=== PATIENT | male | born 1960 | race Hispanic/Latino ===

== ENCOUNTER 2025-01-23 12:06 | Observation (INO) | payer MEDICARE, OTHER ==
[~2025-01-23] VITALS: Ht 175.3 cm; Wt 76.2 kg
[2025-01-23 12:24] VITALS: TEMP 98
[2025-01-23 12:57] LABS: BASOPHILS % 0.2 % (0.0-1.0); EOSINOPHILS # (AUTO) 0.1 (0.0-0.4); EOSINOPHILS % 0.5 % (0.0-6.0); HEMATOCRIT 36.2 % (38.2-49.6); HEMOGLOBIN 12.2 g/dL (14.0-18.0); LYMPHOCYTES # (AUTO) 1.3 (1.0-3.2); MEAN CORPUSCULAR HEMOGLOBIN 31.2 pg (28-32); MEAN CORPUSCULAR HGB CONC 33.7 g/dL (31-35); MEAN CORPUSCULAR VOLUME 92.6 fL (81-99); MONOCYTES # (AUTO) 0.7 (0.2-0.8); MONOCYTES % 7.4 % (4.4-11.3); NEUTROPHILS # (AUTO) 7.2 (2.1-6.9); NEUTROPHILS % 77.6 % (38.7-80.0); PLATELET COUNT 189 x10e3/uL (140-360); RED BLOOD COUNT 3.91 x10e6/uL (4.3-5.7); RED CELL DISTRIBUTION WIDTH 12.6 % (11.7-14.4); WHITE BLOOD COUNT 9.28 x10e3/uL (4.8-10.8)
[2025-01-23 13:34] LABS: ALBUMIN 3.8 g/dL (3.5-5.0); ALBUMIN/GLOBULIN RATIO 1.2 (0.8-2.0); ANION GAP 15.9 mmol/L (8-16); BILIRUBIN,TOTAL 0.5 mg/dL (0.2-1.2); CALCIUM 9.2 mg/dL (8.4-10.2); CREATININE, SERUM 0.97 mg/dL (0.72-1.25); POTASSIUM 3.9 mmol/L (3.5-5.1); TOTAL PROTEIN 6.9 g/dL (6.5-8.1)
[2025-01-23 13:39] LABS: TROPONIN I 0.012 ng/mL (0-0.300)
[2025-01-23 13:52] LABS: INR 0.95; PROTHROMBIN TIME 13.5 seconds (11.9-14.5)
[2025-01-23 13:53] LABS: PARTIAL THROMBOPLASTIN TIME 29.2 seconds (23.8-35.5)
[2025-01-23] MEDS: SODIUM CHLORIDE 0.9% 1000ML 1,000 ML IV STA (13:55)
[2025-01-23 15:02] VITALS: PULSE 78; RESP 24
[2025-01-23] MEDS ORDERED: ONDANSETRON HCL INJ 2MG/ML 2ML 2 MG/ML VIAL IV PRN (15:45)
[2025-01-23 19:18] LABS: TROPONIN I 0.007 ng/mL (0-0.300)
[2025-01-23 20:00] VITALS: BP 141/86; PULSE 81; RESP 20; TEMP 98; O2SAT 100
[2025-01-23 21:00] VITALS: BP 141/86; PULSE 81; RESP 20; TEMP 98; O2SAT 100
[2025-01-23] MEDS: ACETAMINOPHEN 325 MG TAB PO PRN (22:39)
[2025-01-24] VITALS (9 sets, daily range): BP systolic 106–130; BP diastolic 73–85; PULSE 67–77; RESP 17–20; TEMP 97.9–98.7; O2SAT 98–100
[2025-01-24 00:28] LABS: TROPONIN I 0.002 ng/mL (0-0.300)
[2025-01-24 06:27] LABS: BASOPHILS % 0.3 % (0.0-1.0); EOSINOPHILS # (AUTO) 0.1 (0.0-0.4); EOSINOPHILS % 0.6 % (0.0-6.0); HEMATOCRIT 36.6 % (38.2-49.6); HEMOGLOBIN 12.3 g/dL (14.0-18.0); LYMPHOCYTES # (AUTO) 1.5 (1.0-3.2); MEAN CORPUSCULAR HEMOGLOBIN 31.9 pg (28-32); MEAN CORPUSCULAR HGB CONC 33.6 g/dL (31-35); MEAN CORPUSCULAR VOLUME 94.8 fL (81-99); MONOCYTES # (AUTO) 0.7 (0.2-0.8); MONOCYTES % 8.5 % (4.4-11.3); NEUTROPHILS # (AUTO) 5.6 (2.1-6.9); NEUTROPHILS % 71.3 % (38.7-80.0); PLATELET COUNT 178 x10e3/uL (140-360); RED BLOOD COUNT 3.86 x10e6/uL (4.3-5.7); RED CELL DISTRIBUTION WIDTH 12.6 % (11.7-14.4); WHITE BLOOD COUNT 7.88 x10e3/uL (4.8-10.8)
[2025-01-24 06:51] LABS: ANION GAP 13.8 mmol/L (8-16); CALCIUM 8.5 mg/dL (8.4-10.2); CHOL/HDL RATIO 2.4 (3.9-4.7); CREATININE, SERUM 0.8 mg/dL (0.72-1.25); POTASSIUM 3.8 mmol/L (3.5-5.1)
[2025-01-24 07:13] LABS: TROPONIN I 0.002 ng/mL (0-0.300)
[2025-01-24] MEDS ORDERED: SIMVASTATIN10 MG PO (08:59)
[2025-01-24] MEDS: ASPIRIN 81 MG ENTERIC COATED PO SCH (09:16)
[2025-01-24] MEDS: SIMVASTATIN 20 MG TAB PO SCH (20:09)
[2025-01-25 08:03] VITALS: BP 122/88; PULSE 61; RESP 18; TEMP 97.8; O2SAT 98
[2025-01-25 09:54] VITALS: BP 122/88; PULSE 61; RESP 18; TEMP 97.8; O2SAT 98
[2025-01-25 11:58] VITALS: BP 116/75; PULSE 80; RESP 18; TEMP 97.6; O2SAT 99
[2025-01-25] MEDS ORDERED: ASPIRIN EC81 MG PO (15:51)
[2025-01-25 16:03] VITALS: BP 125/84; PULSE 66; RESP 18; TEMP 97.6; O2SAT 98
== END 2025-01-25 17:58 | disposition home or self-care (01) ==
LOC: ER 12:41 → ERHOLD 15:45 → MED/SURG3 16:20 → MED/SURG 16:59 → MED/SURG3 17:10
PROVIDERS: ADMIT Internal Medicine; ATTEND Internal Medicine
DX: R07.89 Other chest pain (principal); E78.5 Hyperlipidemia, unspecified; K21.9 Gastro-esophageal reflux disease without esophagitis
CPT/HCPCS: 36415 ×2; 71045; 80048; 80053; 80061; 82550 ×2; 83735; 83880; 84484 ×2; 85025 ×2; 85610; 85730; 93005; 93306; 99284; G0378 ×3; J2470 ×3; J7030